=== PATIENT | female | born 1985 | race Caucasian/White ===

== ENCOUNTER 2023-11-11 13:29 | Emergency (ER) | payer BC ==
[~2023-11-11] VITALS: Ht 165.1 cm; Wt 70.4 kg
[2023-11-11] MEDS ORDERED: FAMOTIDINE40 MG PO (13:49)
[2023-11-11] MEDS ORDERED: ATOMOXETINE HCL40 MG PO (13:50)
[2023-11-11] MEDS ORDERED: hydrOXYzine pamoate 25 MG CAP PO ONE (14:00)
[2023-11-11 14:18] LABS: BASO % 0.4 % (0.0-1.0); EOS # 0.1 10*3/uL (0.0-0.4); EOS % 1.1 % (1.0-4.0); HEMATOCRIT 38.9 % (37.0-47.0); LYMPH # 1.3 10*3/uL (1.3-4.4); LYMPH % 24.3 % (27.0-41.0); MEAN CELL VOLUME 90.9 fl (81.0-99.0); MEAN CORPUSCULAR HGB 29.4 pg (27.0-31.0); MEAN CORPUSCULAR HGB CONC 32.4 g/dl (33.0-37.0); MEAN PLATELET VOLUME 9.6 fl (9.6-12.3); MONO # 0.3 10*3/uL (0.1-1.0); MONO % 6.3 % (3.0-9.0); NEUT # 3.6 10*3/uL (2.3-7.9); NEUT % 67.5 % (47.0-73.0); PLATELET COUNT AUTOMATED 248 10*3/uL (130-400); RED BLOOD COUNT 4.28 10*6/uL (4.10-5.10); RED CELL DISTRI WIDTH 13.1 % (0-14.5); WHITE BLOOD COUNT 5.3 10*3/uL (4.8-10.8)
[2023-11-11 14:46] LABS: BUN 8 mg/dl (9-23); CHLORIDE 106 mmol/L (98-107); POTASSIUM 3.8 mmol/L (3.4-5.1)
== END 2023-11-11 15:18 | disposition home or self-care (01) ==
LOC: ED 13:29
PROVIDERS: Physician Assistant Medical
DX: R55 Syncope and collapse (principal); Z98.890 Other specified postprocedural states